=== PATIENT | male | born 1965 | race Two or more races ===

== ENCOUNTER 2023-07-18 16:35 | Emergency (ER) | payer BC ==
[~2023-07-18] VITALS: Ht 160 cm; Wt 70.5 kg
[2023-07-18 16:59] VITALS: BP 165/85; PULSE 80; RESP 14; TEMP 98.7; O2SAT 96
[2023-07-18] MEDS ORDERED: CEPH-585 PO (18:33)
== END 2023-07-18 18:53 | disposition home or self-care (01) ==
LOC: ER 16:36
DX: L03.031 Cellulitis of right toe (principal)
CPT/HCPCS: 99283